=== PATIENT | female | born 2000 | race Hispanic/Latino ===

== ENCOUNTER 2019-07-31 10:28 | Emergency (ER) | payer BC ==
[~2019-07-31] VITALS: Ht 154.9 cm; Wt 59.9 kg
[~2019-07-31 10:28] MED LIST: PROCHLORPERAZIN10 MG PO; SUMATRIPTAN SUC25 MG PO
[2019-07-31] MEDS ORDERED: PROCHLORPERAZIN10 MG PO (12:59)
== END 2019-07-31 13:08 | disposition home or self-care (01) ==
LOC: ED 10:28
DX: G43.909 Migraine, unspecified, not intractable, without status migrainosus (principal); Z88.0 Allergy status to penicillin
CPT/HCPCS: 84703; 96361; 96374; 96375; 99284-25; J0780; J1100; J1200; J7030